=== PATIENT | male | born 1965 | race Caucasian/White ===

== ENCOUNTER 2018-07-26 09:46 | Outpatient (CLI) | payer BC | END 2018-07-26 10:25 | disposition home or self-care (01) | LOC: SLEEP 09:46 | PROVIDERS: ATTEND Nurse Practitioner | DX: G47.33 Obstructive sleep apnea (adult) (pediatric) (principal); G47.10 Hypersomnia, unspecified; R06.83 Snoring ==

== ENCOUNTER → 2021-06-30 | Outpatient (CLI) | payer BC ==
--- NOTE | 2021-06-30 09:34 | Diagnostic Imaging Report ---
INDICATION: Palpable lump left breast. COMPARISON: No prior mammograms are available for comparison. TECHNIQUE: 2D and 3D unilateral left diagnostic mammography was performed with CAD. A BB marker was placed at the area of palpable abnormality in the lower left breast. FINDINGS: There is some mild ill-defined density in the inferior retroareolar left breast at the area of palpable abnormality. No discrete mass is seen. There are scattered benign calcifications. There is an intraparenchymal lymph node in the upper outer left breast. No malignant-appearing microcalcifications are seen. The left axilla is unremarkable. IMPRESSION: There is some mild density at the area of palpable abnormality in the inferior retroareolar left breast which could represent gynecomastia. No discrete mass is detected. Even so, directed sonographic interrogation of the area of palpable abnormality in the left breast is recommended and will be performed today. ACR BI-RADS Category 0: Incomplete. (Needs additional imaging evaluation). Result letter will be mailed to the patient. Note: At least 10% of breast cancer is not imaged by mammography. Dictated by: Dictated on workstation # [id number]
--- NOTE | 2021-06-30 12:44 | Diagnostic Imaging Report ---
INDICATION: Left breast lump. COMPARISON: Correlation is made with the diagnostic mammogram performed earlier this same day. FINDINGS: Sonographic interrogation of the area of palpable abnormality was performed. This corresponds to the 6 o'clock retroareolar portion of the left breast. No discrete mass is identified. There is some mild parenchymal heterogeneity, likely corresponding to the density noted mammographically. This could be gynecomastia. No fluid collection is seen. IMPRESSION: Tissue heterogeneity without evidence of discrete mass. This may be owing to gynecomastia. Continued close clinical and self breast exams are recommended to confirm stability of the palpable abnormality. ACR BI-RADS Category 2: Benign findings. Dictated by: Dictated on workstation # [id number]
== END ==
LOC: RAD 09:15
PROVIDERS: ATTEND Internal Medicine
DX: N63.42 Unspecified lump in left breast, subareolar (principal)
CPT/HCPCS: 76642; 77065; G0279